=== PATIENT | female | born 1950 | race Asian ===

== ENCOUNTER 2024-09-09 12:40 | Day surgery (SDC) | payer OTHER, SELFPAY ==
[2024-09-09] VITALS (7 sets, daily range): BP systolic 102–159; BP diastolic 54–77; PULSE 51–66; RESP 9–21; TEMP 36.4–36.9; O2SAT 94–99; BMI 23.3
[2024-09-09] MEDS: DiphenhydrAMINE INJ 50 MG/ML VIAL 25 MG IV (14:06)
[2024-09-09] MEDS: fentaNYL CIT INJ 50 mCg/ML AMP 2ML (ASD USE ONLY) IV (14:09)
[2024-09-09] MEDS: MIDAZOLAM INJ 1 MG/ML VIAL 2 ML (ASD USE ONLY) 2 MG IV (14:09)
--- NOTE | 2024-09-09 16:13 | SUR.PHASEII ---
1426: Pt into recovery. Report from Tracy SHELTON. Pt groggy. Easily aroused with eye opening. Resp even, unlabored. VS stable. Denies pain. 1448: Pt more awake, alert. Sitting up tolerating po fluids with no difficulty swallowing and no n/v. 1505: Pt fully awake, oriented x3. Pt assisted to restroom. Ambulation steady. Pt and stated understanding of discharge instructions. Pt discharged from [facility] in stable condition.
== END 2024-09-09 15:05 | disposition home or self-care (01) ==
PROVIDERS: PCP Internal Medicine; Referring Provider Specialist; Visit Provider Specialist
PROC: 0DBE8ZX Excision of Large Intestine, Via Natural or Artificial Opening Endoscopic, Diagnostic (ICD-10-PCS; CPT 45380; principal; 2024-09-09 12:45)
DX: Z12.11 Encounter for screening for malignant neoplasm of colon (principal); K64.9 Unspecified hemorrhoids; K57.30 Diverticulosis of large intestine without perforation or abscess without bleeding
CPT/HCPCS: G0121; J1200; J2250; J3010

== ENCOUNTER 2024-11-22 06:29 | Emergency (ER) | payer OTHER, SELFPAY ==
[2024-11-22 06:30] VITALS: BMI 24.3
[2024-11-22 06:40] VITALS: BP 196/86; RESP 17; TEMP 36.7; O2SAT 99
[2024-11-22 07:00] VITALS: BP 167/73; PULSE 59; RESP 15; O2SAT 98
--- NOTE | 2024-11-22 07:20 | PC.NURSE ---
Patient to er with at bedside with c/o intermittent upper mid chest pain radiating to upper mid abdomen and neck x 1 week, worse this am that awoke her from sleep, patient states she took 1 nitro sl that was prescribed to her by dr. Buchanan who is her spool tender, patient also c/o nausea and dizziness, currently Dr. Ribeiro at bedside and patient states pain is not as bad at this time and rates it as a 6/10, call light withi reach, new orders received.
[2024-11-22 07:22] VITALS: BP 135/55; PULSE 66; RESP 14; TEMP 36.8; O2SAT 99
--- NOTE | 2024-11-22 07:45 | PD.EDCHEST ---
ED Chest Pain RME/HPI General Chief Complaint: Chest Pain Stated Complaint: CHEST PAIN Time Seen by Provider: 11/22/24 07:17 Arrival date/time: 11/22/24 06:29 RME / HPI RME / HPI narrative: 74 year old female with history of hypertension, diabetes, hypothyroidism presents to the ED for evaluation of chest pain. Reportedly has had intermittent chest pain over the course of several weeks. However, noted in the last week the pain is occurring more frequently and keeping her up at night. Last night states she was having difficulty sleeping and while washing her clothes at 04:30 AM today, noted the chest pain was not improving. Described as aching in sensation that is located most to the center of chest. Denies any associated sweats, cough, shortness of breath, abdominal pain, nausea, vomiting. No other associated symptoms. Patient mentioned she has a scheduled appointment with her organizational development director Dr. Buchanan regarding chest pain. Additionally reports she sees her organizational development director Dr. Buchanan every 3 months. Last had an angiogram in 2018 and does not recall the results. Related Data Home Medications ?Medication ?Instructions ?Recorded ?Confirmed Unobtainable 09/09/24 09/09/24 Allergies Allergy/AdvReac Type Severity Reaction Status Date / Time shellfish derived Allergy Intermediate RASH Verified 09/09/24 14:55 Review of Systems Review of Systems Narrative Review of Systems: Gen: No fever, no chills, no weight loss EYES: No discharge, no visual changes, no pain HEENT: No ear pain, no congestion, no sore throat PULM: no shortness of breath, no cough, no congestion CV: +chest pain, no dyspnea on exertion, no palpitations, no chest tightness GI: No nausea, no vomiting, no diarrhea, no pain, no constipation : No frequency, no urgency,? no dysuria Musc/skel: No joint pain, no back pain Skin: No rash, no ecchymosis, no lesions Neuro: No weakness, no headache Past Medical History Past Medical History CARDIAC: Positive Cardiac Disorders, Hypercholesterolemia and Hypertension GASTROINTESTINAL: Positive Gastrointestinal Disorders and Gastroesophageal Reflux Disease (TAKES MED) REPRODUCTIVE: Positive Previous Pregnancies (5) MUSCULOSKELETAL: Positive Musculoskeletal Disorders ENT: Positive Cataracts (RIGHT EYE) ENDOCRINE: Positive Endocrine Disorders, Diabetes Mellitus Type 2 and Hypothyroidism OTHER HISTORY: Positive Chicken Pox, Measles and Mumps Family History FAMILY HISTORY: Positive Family Cardiac Disorders (MOTHER,FATHER (OPEN HEART)MOTHER,FATHER,BROTHER,SISTER (HTN)) and Family Surgery (MOTHER,FATHER) Surgical History SURGICAL: Positive Cardiac Catheterization, Angiogram, Hysterectomy ([place] WITH MEHRAN SALP) and Section (X1) Social History SMOKING STATUS: Never smoker SUBSTANCE USE: does not use ED Exam Narrative Physical exam: GENERAL APPEARANCE: AxOx4, no obvious distress, nontoxic appearing HEENT: NC, AT. MMM. EOMI, clear conjunctiva, oropharynx clear. NECK: Supple without lymphadenopathy. No stiffness or restricted ROM. HEART: Normal rate and regular rhythm, normal S1/S1, no m/r/g LUNGS: CTAB, moving air well. No crackles or wheezes are heard. ABDOMEN: Soft, nontender, nondistended with good bowel sounds heard. BACK: No midline C/T/L spine pain or deformity, No CVAT, no obvious deformity. EXTREMITIES: Without cyanosis, clubbing or edema. MUSCULOSKELETAL: FROM of all major joints, no chest tenderness NEUROLOGICAL: Grossly nonfocal. Alert and oriented, moving all 4 extremities. CN not formally tested but appear grossly intact. Skin: Warm and dry without any rash. Course Quality Measures none Orders Category Date Time Status EKG (ED ONLY) *Do not use* NOW Care 11/22/24 06:46 Completed EKG (ED Only) Stat Exams 11/22/24 06:46 Ordered Troponin I Stat Lab 11/22/24 08:00 Received Lidocaine 2% Viscous [Xylocaine 2% Viscous] Med 11/22/24 07:34 Discontinued 15 ml PO X1 ONE mg Hyd/Al Hyd/Sly Susp [Maalox Susp] Med 11/22/24 07:34 Discontinued 30 ml PO X1 ONE Reevaluation(s) Reevaluation #1: Patient remains clinically stable throughout the emergency department visit. We reviewed the results and treatment plans. Patient is amenable to discharge and states she will go straight to her organizational development director office. Strict return precautions were outlined. Patient was discharged in stable condition. Time: 08:54 Vital Signs Vital signs: Vital Signs Temperature 98.0 F 11/22/24 06:40 Respiratory Rate 17 11/22/24 06:40 Blood Pressure 196/86 H 11/22/24 06:40 Pulse Oximetry (%) 99 11/22/24 06:40 Oxygen Delivery Method Room Air 11/22/24 06:40 Pulse ox is 99% on room air which is adequate. Chest Pain MDM Narrative MDM Narrative:: Criselda Turner am scribing for and in the presence of Dr. Ribeiro. Patient data External records reviewed:: [facility] previous records (I reviewed H&P on 09/09/24) Clinical information provided by:: patient Social determinants that could affect healthcare access:: none Patient has the following chronic illnesses:: hypertension, diabetes, hypothyroidism How is presenting disease/condition affected by chronic disease/condition?: exacerbated by Evaluation data The following diagnostics were reviewed and interpreted by me:: lab results and EKG tracing(s) (Sinus rhythm, rate 61, normal axis, normal intervals, no acute ST or T-wave changes, no STEMI. ) Lab and/or radiology exams considered but not ordered:: None Interpretation Summary: As noted above Medications / Prescriptions Medications or Prescriptions considered but not ordered:: None Medication administrations:: Medication Administration History Discontinued Medications Al Hydrox/Mg Hydrox/Simethicone (Mg Hyd/Al Hyd/Sly (Maalox Reg) Susp 30 Ml Udc) 30 ml PO X1 ONE Stop: 11/22/24 07:35 Last Admin: 11/22/24 08:26 Dose: 30 ml Documented By: JONO Lidocaine HCl (Lidocaine Viscous 2% 15 Ml Udc) 15 ml PO X1 ONE Stop: 11/22/24 07:35 Last Admin: 11/22/24 08:25 Dose: 15 ml Documented By: JONO See above Consultations Consultation(s) initiated? (list below): No Diagnosis Chest Pain Differential Diagnosis: pneumothorax, stable angina, unstable angina pectoris, atypical chest pain, st elevation myocardial infarction, costochondritis, chest pain, biliary colic and other (Gastritis, GERD) Most likely diagnosis given after review of the tests above:: Chest pain GERD Admission Indicated Admission indicated?: not indicated Admission Request Was there a request for admission?: No Disposition Plan Disposition Plan: Discharge Discharge Attestation Discharge Attestation: The patient and all family members were given an opportunity to ask questions and understood the discharge instructions. Discharge instructions specifically effects, indications for sooner follow up or return to the emergency department, and the expected course of current diagnosis. Patient condition: Stable Discharge Plan Plan Patient Disposition: HOME (Self Care) Prescriptions/Referrals Prescriptions/Med Rec: No Action Unobtainable Problem List Clinical Impression: Chest pain, GERD (gastroesophageal reflux disease) Patient/Caregiver Discharge Instructions Education Materials: ED Chest Pain, Uncertain Cause, ED GERD (Adult) Additional Instructions: Follow-up with your cardiology appointment as scheduled today with Dr. Kauffman. Please take [id number] famotidine (Pepcid) 40 mg once before bedtime for the next 5 nights. Also follow-up with your primary care doctor Dr Tay in 1 week and consider possible further workup for acid reflux disease. Feel free return to the emergency department sooner if symptoms worsen or if you notice any new, concerning issues. Print Language: Macanese Stand Alone Forms: [facility]elle Award Info., Patient Portal Info Letter
[2024-11-22] MEDS: LIDOCAINE VISCOUS 2% 15 ML UDC PO (08:25)
[2024-11-22] MEDS: MG HYD/AL HYD/SIME (Maalox Reg) SUSP 30 ML UDC PO (08:26)
[2024-11-22 08:48] LABS: Troponin I < 0.020 ng/mL (0.0-0.045)
[2024-11-22 09:01] VITALS: BP 144/63; PULSE 60; RESP 16; O2SAT 97
== END 2024-11-22 09:13 | disposition home or self-care (01) ==
PROVIDERS: Emergency Provider Emergency Medicine; PCP Internal Medicine
DX: R07.9 Chest pain, unspecified (principal); K21.9 Gastro-esophageal reflux disease without esophagitis; E11.9 Type 2 diabetes mellitus without complications; I10 Essential (primary) hypertension; E03.9 Hypothyroidism, unspecified
CPT/HCPCS: 36415; 84484; 93005; 99283; J3490; A9270

== ENCOUNTER → 2024-11-24 | Outpatient (CLI) | payer OTHER, SELFPAY ==
[2024-11-24 08:07] LABS: Collection Type, Urine Clean Catch
[2024-11-24 08:39] LABS: Glucose Estimated Average 160 mg/dL (80-131); Hemoglobin A1C 7.2 % Hgb (4.8-6.0)
[2024-11-24 08:57] LABS: Cardiac Risk Estimate 3.5 RATIO (3.7-5.6); Cholesterol 148 mg/dL (132-200); Free T4 (Free Thyroxine) 1.56 ng/dL (0.89-1.76); HDL Cholesterol 42 mg/dL (40-60); LDL Cholesterol,Calculated 71 mg/dL (0-130); Thyroid Stimulating Hormone 1.69 uIU/mL (0.55-4.78); Triglycerides 173 mg/dL (30-150)
[2024-11-24 08:58] LABS: Bilirubin,Urine Negative (Negative); Blood,Urine Negative (Negative); Clarity,Urine Clear (Clear/Hazy); Color,Urine Lt-Yellow (Lt Yel-Yel); Glucose, Urine 4+ (Negative); Ketones,Urine Negative (Negative); Leukocyte Esterase,Urine Negative (Negative); Nitrite,Urine Negative (Negative); PH,Urine 6.5 (5.0-7.0); Protein,Urine Negative (Neg - Trace); RBC,Urine 3 /hpf (0-3); Specific Gravity,Urine 1.016 (1.001-1.035); Squamous Epithelial Cell,Urine 3 /hpf (0-5); Urobilinogen,Urine Negative mg/dL (0.0-1.0); WBC,Urine < 1 /hpf (0-5)
[2024-11-24 09:27] LABS: Creatinine MALB Rnd Ur 58 mg/dL (30-125); Creatinine,Random Urine 58 mg/dL (30-125); Microalbumin, Random Urine < 3 mg/L (0-300)
== END | disposition home or self-care (01) ==
LOC: COPL 06:43
PROVIDERS: PCP Internal Medicine; Referring Provider Internal Medicine; Visit Provider Internal Medicine
DX: I10 Essential (primary) hypertension (principal); E03.4 Atrophy of thyroid (acquired)
CPT/HCPCS: 36415; 80061; 81001; 82043; 82570; 83036; 84439; 84443

== ENCOUNTER → 2024-11-28 | Outpatient (CLI) | payer OTHER, SELFPAY ==
[2024-11-28 11:27] LABS: OBS Card Expiration Date 2026/09; OBS Card Lot # 23001; OBS Performed By LAB; OBS QC OK? Yes
[2024-11-28 17:50] LABS: OBS Developer Lot # 23003; Occult Blood, Stool Negative (Negative); Occult Blood, Stool #2 Negative (Negative); Occult Blood, Stool #3 Negative (Negative)
== END | disposition home or self-care (01) ==
LOC: SLDO 11:12
PROVIDERS: PCP Internal Medicine; Referring Provider Internal Medicine; Visit Provider Internal Medicine
DX: I10 Essential (primary) hypertension (principal); E03.9 Hypothyroidism, unspecified
CPT/HCPCS: 82270

== ENCOUNTER → 2025-02-06 | Outpatient (CLI) | payer OTHER, SELFPAY ==
--- NOTE | 2025-02-06 09:26 | XR_ITS ---
Examination: Abdomen sonogram, complete Date and time of exam: February 06, 2025 0940 hours INDICATIONS: Heartburn abdominal pain 6 months. Technique: Multiple real-time grayscale transabdominal sonographic images of the abdomen have been obtained. Findings: Normal gallbladder Normal common bile duct 0.3 cm Pancreatic head 2.6 cm Aorta not enlarged Liver 14.6 cm fatty liver Normal hepatopedal portal venous flow Patent IVC Right kidney 9.6 cm renal cortex 1.4 cm Left kidney 9.3 cm renal cortex 1.8 cm Spleen 7.6 cm IMPRESSION: Normal gallbladder Fatty liver
== END | disposition home or self-care (01) ==
PROVIDERS: PCP Internal Medicine; Referring Provider Internal Medicine; Visit Provider Internal Medicine
DX: K76.0 Fatty (change of) liver, not elsewhere classified (principal)
CPT/HCPCS: 76700

== ENCOUNTER → 2025-02-20 | Outpatient (CLI) | payer OTHER, SELFPAY ==
[2025-02-20 09:14] LABS: Thyroid Stimulating Hormone 3.07 uIU/mL (0.55-4.78)
[2025-02-27 07:07] LABS: ANA Pattern CYTOPLASMIC; ANA Pattern NUCLEAR, CENTROMERE; ANA Screen, IFA POSITIVE (NEGATIVE); T3 Uptake* 30 % (22-35)
== END | disposition home or self-care (01) ==
LOC: COPL 06:41
PROVIDERS: PCP Internal Medicine; Referring Provider Specialist; Visit Provider Specialist
DX: R10.13 Epigastric pain (principal); R10.12 Left upper quadrant pain; R13.10 Dysphagia, unspecified
CPT/HCPCS: 36415; 84443; 84479; 86038

== ENCOUNTER → 2025-03-02 | Outpatient (CLI) | payer OTHER, SELFPAY ==
[2025-03-02 08:46] LABS: Glucose Estimated Average 148 mg/dL (80-131); Hemoglobin A1C 6.8 % Hgb (4.8-6.0)
[2025-03-02 08:48] LABS: Basophils # (Auto) 0.1 Thou/mm3 (0.0-0.2); Basophils % (Auto) 1 % (0-2.5); Eosinophils # (Auto) 0.6 Thou/mm3 (0.0-0.5); Eosinophils % (Auto) 8 % (0-10); Hematocrit 38.7 % (36.0-46.0); Hemoglobin 13.1 g/dL (12.0-16.0); Immature Granulocytes % (Auto) 0 % (0-0); Immature Granulocytes Auto 0.03 Thou/mm3 (0.00-0.00); Lymphocytes # (Auto) 3.3 Thou/mm3 (1.0-4.8); Lymphocytes % (Auto) 39 % (10-50); Mean Corpuscular HGB Conc 33.9 g/dl (31.0-37.0); Mean Corpuscular Hemoglobin 32.3 pg (25.0-35.0); Mean Corpuscular Volume 95 fL (80-100); Monocytes # (Auto) 0.7 Thou/mm3 (0.0-0.8); Monocytes % (Auto) 8 % (0-12); Neutrophils # (Auto) 3.8 Thou/mm3 (1.8-7.7); Neutrophils % (Auto) 44 % (37-80); Nucleated Red Blood Cell % 0 /100 WBC (0); Platelet Count 251 Thou/mm3 (140-440); RDW Standard Deviation 45.7 fL (36.4-46.3); Red Blood Count 4.06 Miln/mm3 (4.00-5.20); White Blood Count 8.5 Thou/mm3 (3.6-11.0)
[2025-03-02 08:57] LABS: Alanine Aminotransferase 31 U/L (10-49); Albumin, Serum 4.6 gm/dL (3.4-4.8); Albumin/Globulin Ratio 1.4 (1.2-2.2); Alkaline Phosphatase 98 U/L (46-116); Anion Gap 9 (7-16); Aspartate Amino Transferase 27 U/L (0-34); BUN/Creatinine Ratio 14 Ratio (12-20); Bilirubin,Total 0.4 mg/dL (0.3-1.2); Blood Urea Nitrogen 14 mg/dL (9-23); Carbon Dioxide 28.4 mMol/L (20.0-31.0); Cardiac Risk Estimate 3.5 RATIO (3.7-5.6); Chloride 99 mMol/L (98-107); Cholesterol 144 mg/dL (132-200); Free T4 (Free Thyroxine) 1.66 ng/dL (0.89-1.76); Globulin 3.4 gm/dL (2.3-3.5); Glucose 114 mg/dL (74-106); HDL Cholesterol 41 mg/dL (40-60); LDL Cholesterol,Calculated 65 mg/dL (0-130); Osmolality,Calculated 273 (275-295); Sodium 136 mMol/L (136-145); Thyroid Stimulating Hormone 2.45 uIU/mL (0.55-4.78); Triglycerides 192 mg/dL (30-150); eGFR 59 See Note
[2025-03-02 10:07] LABS: Creatinine MALB Rnd Ur 99 mg/dL (30-125); Microalbumin, Random Urine < 3 mg/L (0-300)
== END | disposition home or self-care (01) ==
LOC: COPL 06:39
PROVIDERS: PCP Internal Medicine; Referring Provider Internal Medicine; Visit Provider Internal Medicine
DX: E10.65 Type 1 diabetes mellitus with hyperglycemia (principal); E03.4 Atrophy of thyroid (acquired); I10 Essential (primary) hypertension
CPT/HCPCS: 36415; 80053; 80061; 82043; 82570; 83036; 84439; 84443; 85025

== ENCOUNTER 2025-03-10 09:55 | Day surgery (SDC) | payer OTHER, SELFPAY ==
[2025-03-10] VITALS (9 sets, daily range): BP systolic 97–170; BP diastolic 52–78; PULSE 51–70; RESP 14–22; TEMP 36.5–36.8; O2SAT 94–100; BMI 24.4
[2025-03-10] MEDS: DiphenhydrAMINE INJ 50 MG/ML VIAL 25 MG IVP (11:50)
[2025-03-10] MEDS: SODIUM CHLORIDE 0.9% 500 ML 500 ML 20 ML IV (11:50)
[2025-03-10] MEDS: BENZOCAINE 20% (Hurricaine) SPRAY 1 DOSE TOP (11:50)
[2025-03-10] MEDS: fentaNYL CIT INJ 50 mCg/ML AMP 2ML (ASD USE ONLY) IVP (11:53)
[2025-03-10] MEDS: MIDAZOLAM INJ 1 MG/ML VIAL 2 ML (ASD USE ONLY) 2 MG IVP (11:53)
== END 2025-03-10 13:10 | disposition home or self-care (01) ==
PROVIDERS: PCP Internal Medicine; Referring Provider Specialist; Visit Provider Specialist
PROC: (CPT 43239; principal; 2025-03-10 13:45)
DX: K20.90 Esophagitis, unspecified without bleeding (principal); K22.2 Esophageal obstruction; K29.70 Gastritis, unspecified, without bleeding; K31.89 Other diseases of stomach and duodenum; K29.50 Unspecified chronic gastritis without bleeding
CPT/HCPCS: 43248; 43239; C1769; J1200; J2250; J3010; J7040; A9270

== ENCOUNTER → 2025-06-12 | Outpatient (CLI) | payer OTHER, SELFPAY ==
[2025-06-12 09:11] LABS: Alanine Aminotransferase 33 U/L (10-49); Albumin, Serum 4.3 gm/dL (3.4-4.8); Albumin/Globulin Ratio 1.3 (1.2-2.2); Alkaline Phosphatase 91 U/L (46-116); Anion Gap 12 (7-16); Aspartate Amino Transferase 31 U/L (0-34); BUN/Creatinine Ratio 18 Ratio (12-20); Bilirubin,Total 0.3 mg/dL (0.3-1.2); Blood Urea Nitrogen 22 mg/dL (9-23); Calcium 10.2 mg/dL (8.3-10.6); Calcium (Corrected) 10.2 mg/dL (8.5-10.1); Carbon Dioxide 26.5 mMol/L (20.0-31.0); Cardiac Risk Estimate 3.4 RATIO (3.7-5.6); Chloride 97 mMol/L (98-107); Cholesterol 140 mg/dL (132-200); Creatinine (Component) 1.2 mg/dL (0.6-1.3); Globulin 3.2 gm/dL (2.3-3.5); Glucose 129 mg/dL (74-106); HDL Cholesterol 41 mg/dL (40-60); LDL Cholesterol,Calculated 70 mg/dL (0-130); Osmolality,Calculated 275 (275-295); Potassium 5.1 mMol/L (3.4-5.1); Sodium 135 mMol/L (136-145); Total Protein 7.5 gm/dL (5.7-8.2); Triglycerides 145 mg/dL (30-150); eGFR 48 See Note
[2025-06-12 09:24] LABS: Glucose Estimated Average 171 mg/dL (80-131); Hemoglobin A1C 7.6 % Hgb (4.8-6.0)
== END | disposition home or self-care (01) ==
LOC: COPL 06:36
PROVIDERS: PCP Internal Medicine; Referring Provider Internal Medicine; Visit Provider Internal Medicine
DX: E11.65 Type 2 diabetes mellitus with hyperglycemia (principal); I10 Essential (primary) hypertension
CPT/HCPCS: 36415; 80053; 80061; 83036